=== PATIENT | female | born 1945 | race Caucasian/White ===

== ENCOUNTER 2017-06-21 09:04 | Day surgery (SDC) | payer OTHER ==
[~2017-06-21 09:04] MED LIST: CEFAZOLIN 1 GM INJ; FENTAnyl 50 MCG/ML VIAL
[2017-06-21] MEDS ORDERED: FENTAnyl 50 MCG/ML VIAL (09:44)
[2017-06-21] MEDS ORDERED: MIDAZOLAM 1 MG/ML 2 ML INJ ×2 (09:44)
[2017-06-21] MEDS ORDERED: PROPOFOL 20 ML (09:45)
[2017-06-21] MEDS ORDERED: ROPIVACAINE 0.5 % 30 ML VIAL (09:45)
[2017-06-21 11:01] LABS: ADD MAN DIFF? NO
[2017-06-21 11:04] LABS: BASOPHIL # 0.1 10^3/ul (0.0-0.1); BASOPHILS % 0.8 % (0.0-2.0); EOSINOPHILS # 0.2 10^3/ul (0.0-0.5); EOSINOPHILS % 1.6 % (0.0-7.0); HEMOGLOBIN 14.4 g/dl (12.0-16.0); LYMPHOCYTES # 2.9 10^3/ul (0.8-2.9); LYMPHOCYTES % 31.4 % (15.0-51.0); MEAN CORPUSCULAR HGB CONC 33.5 g/dl (32.0-37.0); MEAN CORPUSCULAR VOLUME 83.5 fl (82.0-101.0); MONOCYTE # 0.7 10^3/ul (0.3-0.9); MONOCYTES % 7.8 % (0.0-11.0); NEUTROPHIL # 5.4 10^3/ul (1.6-7.5); NEUTROPHILS % 58.1 % (39.0-77.0); PLATELET COUNT 318 10^3/UL (140-415); RED BLOOD COUNT 5.15 10^6/ul (4.20-5.40)
[2017-06-21 11:04] LABS: WHITE BLOOD COUNT 9.3 10^3/ul (4.8-10.8)
[2017-06-21] MEDS ORDERED: KETOROLAC 30 MG INJ (11:09)
[2017-06-21] MEDS ORDERED: ONDANSETRON 4 MG INJ (11:09)
[2017-06-21] MEDS ORDERED: DEXAMETHASONE 4 MG/ML 1 ML INJ (11:09)
[2017-06-21] MEDS ORDERED: ACETAMINOPHEN 1000MG/100ML IV 100 ML (11:09)
[2017-06-21] MEDS ORDERED: PHENYLephrine (100 MCG/ML) 5ML SYG (11:18)
[2017-06-21 11:29] LABS: ALANINE AMINOTRANSFERASE 27 IU/L (13-69); ALBUMIN 4.3 g/dl (3.3-4.9); ALBUMIN/GLOBULIN RATIO 1.43; ALKALINE PHOSPHATASE 88 IU/L (42-121); ANION GAP 16 (8-16); ASPARTATE AMINO TRANSFERASE 18 IU/L (15-46); BILIRUBIN,INDIRECT 0.2 mg/dl (0-1.1); BILIRUBIN,TOTAL 0.2 mg/dl (0.2-1.3); CARBON DIOXIDE 25 mmol/L (21-31); CHLORIDE 105 mmol/L (97-110); GLUCOSE 115 mg/dl (70-220); TOTAL PROTEIN 7.3 g/dl (6.1-8.1)
[2017-06-21 11:35] LABS: BLOOD UREA NITROGEN 12 mg/dl (7-20); CALCIUM 8.9 mg/dl (8.4-10.2); CREATININE 0.46 mg/dl (0.44-1.00); POTASSIUM 3.9 mmol/L (3.5-5.1); SODIUM 142 mmol/L (135-144)
[2017-06-21] MEDS: ROPIVACAINE 0.5 % 30 ML VIAL INJ (11:36)
[2017-06-21] MEDS: POLYMYXIN/BACITRACIN 1L IRRIG (11:36)
[2017-06-21] MEDS ORDERED: SUGAMMADEX SODIUM 200 MG/2 ML VIAL IV (11:46)
[2017-06-21 11:49] LABS: INR 1.07; PT RATIO 1.1
[2017-06-21] MEDS: BACITRACIN/POLYMYXIN 28.35 GM OINT TOP (11:55)
[2017-06-21] MEDS ORDERED: FENTAnyl 50 MCG/ML VIAL IV ×3 (12:00)
[2017-06-21] MEDS ORDERED: LABETALOL HCL 20MG INJ IV (12:00)
[2017-06-21] MEDS ORDERED: DIPHENHYDRAMINE 50 MG INJ IV (12:00)
[2017-06-21] MEDS ORDERED: MEPERIDINE 25 MG INJ IV (12:00)
[2017-06-21] MEDS ORDERED: EPHEDrine SULFATE 50 MG/5 ML SYG IV (12:00)
[2017-06-21] MEDS ORDERED: ONDANSETRON 4 MG INJ IV (12:00)
[2017-06-21] MEDS ORDERED: HYDROmorphONE (0.2 MG/ML) 10ML SYG IV ×3 (12:00)
[2017-06-21] MEDS ORDERED: METOCLOPRAMIDE 10 MG INJ IV (12:00)
[2017-06-21] MEDS ORDERED: morphine 2 MG INJ IV (12:30)
[2017-06-21] MEDS: OXYCODONE/ACETAMINOPHEN (5/325) TAB PO (12:37)
[2017-06-21 12:54] LABS: PARTIAL THROMBOPLASTIN TIME 30.5 Sec (25.0-35.0)
[2017-06-21] MEDS ORDERED: ROCURONIUM 50 MG INJ (15:17)
== END 2017-06-21 15:17 | disposition home or self-care (01) ==
LOC: SDS 09:04
DX: T84.84XA Pain due to internal orthopedic prosthetic devices, implants and grafts, initial encounter (principal); Y83.8 Other surgical procedures as the cause of abnormal reaction of the patient, or of later complication, without mention of misadventure at the time of the procedure; I10 Essential (primary) hypertension; E03.9 Hypothyroidism, unspecified
CPT/HCPCS: 20680; 73600-LT; 80053; 82306; 85025; 85610; 85730; 88300